=== PATIENT | female | born 1985 | race Caucasian/White ===

== ENCOUNTER 2019-07-24 18:35 | Emergency (ER) | payer SELFPAY ==
--- NOTE | 2019-07-24 18:39 | PDOC ---
Rapid Medical Evaluation Time Seen by Provider: 07/24/19 18:36 Medical Evaluation: 07/24/19 18:37 CC: 8wks with vaginal bleeding s/p heavy lifting PE: deferred Orders: labs, urine, TVUS Patient will proceed to ER for further evaluation. Discharge Disposition - Diagnosis Vaginal bleeding - Referrals - Patient Instructions - Post Discharge Activity
[2019-07-24 18:40] VITALS: TEMP 98.2; BMI 34.0
--- NOTE | 2019-07-24 20:03 | PDOC ---
History of Present Illness - General Chief Complaint: Vaginal Bleeding Stated Complaint: vaginal bleeding, 8wks Time Seen by Provider: 07/24/19 18:36 - History of Present Illness Initial Comments: Ms. Flores is a 33 y/o female A2, 8 weeks , with no significant PMH presenting today for vaginal spotting that started two hours ago. Reports that she was lifting something at home and having an argument with her significant other when she went to the bathroom and started having vaginal spotting. Reports associated lower abdominal cramping. Reports that she has been having nausea and vomiting over the past couple of days. Denies fever, chest pain, shortness of breath, back pain, dysuria, dizziness. SocHx: denies interpersonal violence or concern for interpersonal violence OB: Dr. Skinner [facility] Past History - Past Medical History Allergies/Adverse Reactions: Allergies Allergy/AdvReac Type Severity Reaction Status Date / Time No Known Allergies Allergy Verified 07/24/19 18:39 COPD: No - Psycho Social/Smoking Cessation Hx Smoking History: Never smoked Information on smoking cessation initiated: No Hx Alcohol Use: No Drug/Substance Use Hx: No Review of Systems - Review of Systems Comments:: GENERAL/CONSTITUTIONAL: No fever or chills. No weakness._ HEAD, EYES, EARS, NOSE AND THROAT: No change in vision. No change in hearing. No sore throat._ CARDIOVASCULAR: No chest pain or shortness of breath_ RESPIRATORY: Denies cough, hemoptysis_ GASTROINTESTINAL: No nausea, vomiting, diarrhea or constipation. Reports lower abdominal cramping. GENITOURINARY: No dysuria, frequency, or change in urination. Reports vaginal spotting. MUSCULOSKELETAL: No joint or muscle swelling or pain. No neck or back pain._ SKIN: No rash_ NEUROLOGIC: No headache, vertigo, loss of consciousness, or change in strength/ sensation._ ENDOCRINE: No increased thirst. No abnormal weight change_ HEMATOLOGIC/LYMPHATIC: No anemia, easy bleeding, or history of blood clots._ ALLERGIC/IMMUNOLOGIC: No hives or skin allergy._ *Physical Exam - Vital Signs Last Vital Signs Temp Pulse Resp BP Pulse Ox 98.2 F 106 H 19 144/107 H 100 07/24/19 18:38 07/24/19 18:38 07/24/19 18:38 07/24/19 18:38 07/24/19 18:38 - Physical Exam Comments: GENERAL: Awake, alert, and oriented to person/place/time, in no acute distress_ HEAD: No signs of trauma, normocephalic, atraumatic _ EYES: PERRLA, EOMI, sclera anicteric, conjunctiva clear_ ENT: Hearing grossly normal, nares patent, oropharynx clear without exudates. No uvular deviation. Moist mucosa_ NECK: Normal ROM, supple, no lymphadenopathy, JVD, or masses_ LUNGS: No distress, speaks in full sentences, clear to auscultation bilaterally _ HEART: Regular rate and rhythm, normal S1 and S2, no murmurs appreciated, peripheral pulses normal and equal bilaterally._ ABDOMEN: Soft, mild TTP BLQ, normoactive bowel sounds. No guarding, no rebound. No masses_ EXTREMITIES: Normal inspection, Normal range of motion, no edema. No clubbing or cyanosis_ NEUROLOGICAL: Cranial nerves II through XII grossly intact. Normal speech, normal gait, no focal sensorimotor deficits _ SKIN: Warm, Dry, normal turgor, no rashes or lesions noted_ PELVIC: External exam shows no lesions, ulcers, rashes. No bleeding on external exam. Os closed. No bleeding or discharge appreciated on internal inspection. No CMT. No bilateral adnexal tenderness. ED Treatment Course - LABORATORY CBC & Chemistry Diagram: 07/24/19 20:23 07/24/19 20:23 Medical Decision Making - Medical Decision Making 33F A2 at 8 weeks here for vaginal spotting. Nausea and vomiting over the past couple of days. -CBC, BMP, PT/INR -TVUS -serum beta HCG -T+S -UA,UC 07/24/19 23:10 TVUS shows single viable intrauterine . Labs reviewed and wnl except for elevated WBC. Plan to d/c home f/u OBGYN in two days. Discharge - Discharge Information Problems reviewed: Yes Clinical Impression/Diagnosis: Vaginal bleeding, Threatened Condition: Stable Disposition: HOME - Admission No - Follow up/Referral - Patient Discharge Instructions Additional Instructions: Please make a follow up appointment with your OBGYN (Dr. Skinner's office). Please rest, hydrate yourself, no heavy lifting or activity. If you experience any new, worsening, or concerning symptoms, including severe abdominal pain, cramping, vaginal bleeding or discharge, fever, or any other concerns, please return to the emergency department. - Post Discharge Activity
[2019-07-24 20:38] LABS: BASO % 0.2 % (0-2.0); EOS % 0.1 % (0-4.5); HEMATOCRIT 35.9 % (32.4-45.2); HEMOGLOBIN 11.9 GM/dL (10.7-15.3); LYMPH % 8.9 % (8-40); MCH 30.2 pg (25.7-33.7); MCHC 33.2 g/dl (32.0-36.0); MEAN CELL VOLUME 91.1 fl (80-96); MEAN PLT VOLUME 7.8 fl (7.5-11.1); MONO % 4.6 % (3.8-10.2); NEUT % 86.2 % (42.8-82.8); PLATELET COUNT 353 K/MM3 (134-434); RBC 3.94 M/mm3 (3.60-5.2); RDW 12.9 % (11.6-15.6); WHITE BLOOD COUNT 16.9 K/mm3 (4.0-10.0)
[2019-07-24 20:43] LABS: PH,URINE 5.5 (5.0-8.0); URINE APPEARANCE CLOUDY; URINE BILIRUBIN NEGATIVE (NEGATIVE); URINE COLOR YELLOW; URINE GLUCOSE (UA) NEGATIVE (NEGATIVE); URINE KETONE NEGATIVE (NEGATIVE); URINE LEUK ESTERASE NEGATIVE (NEGATIVE); URINE NITRITE NEGATIVE (NEGATIVE); URINE PROTEIN NEGATIVE (NEGATIVE)
[2019-07-24 20:49] LABS: INR 1.06 (0.83-1.09); PROTHROMBIN TIME (PATIENT) 12.5 SEC (9.7-13.0)
--- NOTE | 2019-07-24 20:54 | PDOC ---
Documentation entered by Polina Martinez SCRIBE, acting as scribe for Galina Dasilva DO. Galina Dasilva DO: This documentation has been prepared by the Juan luna Adrianna, SCRIBE, under my direction and personally reviewed by me in its entirety. I confirm that the documentation accurately reflects all work, treatment, procedures, and medical decision making performed by me. Attending Attestation - Resident Resident Name: MullerFamilia - ED Attending Attestation I have performed the following: I have examined & evaluated the patient, The case was reviewed & discussed with the resident, I agree w/resident's findings & plan, Exceptions are as noted - HPI HPI: The patient is a 33 year old female, A2 currently at ~7-8 weeks gestation, who presents to the ED for evaluation of vaginal bleeding for 2 hours. Patient complains of vaginal spotting that began a couple hours ago following an argument with her significant other. Denies any current active bleeding or use of pads. She endorses some lower abdominal cramping but otherwise denies any complaints. Patient has been taking vitamins, but does note a history of miscarriage at both 3 weeks and 5 weeks in the past. LMP was 06/06. Allergies: NKA, NKDA Surgical History: None reported Social History: Denies EtOH, tobacco, or illicit drug use SIGNAL MAINTENANCE TECHNICIAN: Dr. Skinner - Physicial Exam PE: Constitutional: Awake, alert, oriented. No acute distress. Head: Normocephalic. Atraumatic Eyes: PERRL. EOMI. Conjunctivae are not pale. ENT: Mucous membranes are moist and intact. Posterior pharynx without exudates or erythema. Uvula midline. Neck: Supple. Full ROM. No lymphadenopathy. Cardiovascular: Regular rate. Regular rhythm. S1, S2 regular. Distal pulses are 2+ and symmetric. Pulmonary/Chest: No evidence of respiratory distress. Clear to auscultation bilaterally No wheezing, rales or rhonchi. Abdominal: +Mild suprapubic tenderness to palpation. Soft and nondistended. No rebound, guarding or rigidity. No organomegaly. No palpable masses. Good bowel sounds. Pelvic: See resident exam Back: No CVA tenderness. Musculoskeletal: No edema. No cyanosis. No clubbing. Full range of motion in all extremities. Nocalf tenderness. Radial/pedal pulses are intact and 2+ bilaterally Skin: Skin is warm and dry. No petechiae. No purpura. Neurological: Alert and oriented to person, place, and time. Cranial nerves II -XII are grossly intact. Normal speech. Strength is grossly symmetric. No sensory deficits. Psychiatric: Good eye contact. Normal interaction, affect and behavior. - Medical Decision Making 07/24/19 20:28 I, Dr. Galina Dasilva, DO, attest that this document has been prepared under my direction and personally reviewed by me in its entirety. I further attest, that it accurately reflects all work, treatment, procedures and medical decision -making performed by me. a/p: 33yo female at 7-8 weeks gestation with vaginal spotting today after having a verbal argument -no active bleeding -no pads used -hx of miscarriage at 3 weeks and 5 weeks in the past -cramping in lower abd -follows with Dr. Skinner -taking vitamins -no f/c -no dysuria -no other complaints. 07/24/19 20:54 ua neg 07/24/19 21:02 elevated wbc 07/24/19 21:53 beta 62400 pt to ultrasound 07/24/19 23:16 IUP, HR 114 pt stable for dc to home with [employer] follow up and repeat beta in 2 days 07/24/19 23:17 pt is O+ on labs ED Treatment Course - LABORATORY CBC & Chemistry Diagram: 07/24/19 20:23 07/24/19 20:23 - ADDITIONAL ORDERS Additional order review: Laboratory Results 07/24/19 07/24/19 07/24/19 20:23 20:23 20:23 PT with INR 12.50 INR 1.06 Sodium Potassium Chloride Carbon Dioxide Anion Gap BUN Creatinine Est GFR (CKD-EPI)AfAm Est GFR (CKD-EPI)NonAf Random Glucose Calcium Beta HCG, Quant Urine Color Yellow Urine Appearance Cloudy Urine pH 5.5 Ur Specific [place] 1.028 Urine Protein Negative Urine Glucose (UA) Negative Urine Ketones Negative Urine Blood Negative Urine Nitrite Negative Urine Bilirubin Negative Urine Urobilinogen 1.0 Ur Leukocyte Esterase Negative Blood Type O POSITIVE Antibody Screen Negative 07/24/19 07/24/19 20:23 20:23 PT with INR INR Sodium 139 Potassium 4.0 Chloride 110 H Carbon Dioxide 23 Anion Gap 6 L BUN 7.2 Creatinine 0.6 Est GFR (CKD-EPI)AfAm 136.87 Est GFR (CKD-EPI)NonAf 118.09 Random Glucose 93 Calcium 8.7 Beta HCG, Quant 07885.1 Urine Color Urine Appearance Urine pH Ur Specific [place] Urine Protein Urine Glucose (UA) Urine Ketones Urine Blood Urine Nitrite Urine Bilirubin Urine Urobilinogen Ur Leukocyte Esterase Blood Type Antibody Screen 07/24/19 20:23 RBC 3.94 MCV 91.1 MCHC 33.2 RDW 12.9 MPV 7.8 Neutrophils % 86.2 H Lymphocytes % 8.9 Monocytes % 4.6 Eosinophils % 0.1 Basophils % 0.2 - RADIOLOGY Radiograph Interpretation: EXAM#: TYPE/EXAM: RESULT: [id number] US/ <14WKS US Obstetrical ultrasound Clinical information: 8 weeks with vaginal bleeding Impression: Single viable intrauterine gestation at approximately 6 weeks 1 day. No definite sonographic abnormality is identified. Reported By: Raji Salazar MD 07/24/19 23:04
[2019-07-24 20:59] LABS: BLOOD UREA NITROGEN 7.2 mg/dL (7-18); CALCIUM 8.7 mg/dL (8.5-10.1); CREATININE 0.6 mg/dL (0.55-1.3)
[2019-07-24 22:38] VITALS: BP 135/85; PULSE 71
== END 2019-07-24 23:40 | disposition home or self-care (01) ==
LOC: JER 18:35
DX: O26.891 Other specified pregnancy related conditions, first trimester (principal); O20.0 Threatened abortion; Z3A.01 Less than 8 weeks gestation of pregnancy
CPT/HCPCS: 36415; 76801-TC; 80048; 81003; 84702; 85025; 85610; 86850; 86900; 86901; 87086; 99283-25

== ENCOUNTER 2020-04-27 21:06 | Emergency (ER) | payer OTHER ==
[2020-04-27 21:11] VITALS: BMI 30.2
--- NOTE | 2020-04-27 21:13 | PDOC ---
Rapid Medical Evaluation Time Seen by Provider: 04/27/20 21:09 Medical Evaluation: Allergies Allergy/AdvReac Type Severity Reaction Status Date / Time No Known Allergies Allergy Verified 02/23/20 22:55 04/27/20 21:10 Pt presents for evaluation of lightheadedness and HTN. She states that she was recently diagnosed with HTN after giving two months ago, but does not take any medications for it. Also admits to neck pain, denies fever, nausea, vomiting and chest pain Exam: BP 157/97, Lungs CTAB Orders: labs, EKG, IV Pt to proceed to the ER for further evaluation Discharge Disposition - Diagnosis Lightheaded - Discharge Dispostion Disposition: HOME Condition at time of disposition: Stable Decision to Admit order: No - Referrals - Patient Instructions - Post Discharge Activity
--- NOTE | 2020-04-27 22:26 | PDOC ---
History of Present Illness - General Chief Complaint: Blood Pressure Problem Stated Complaint: HYPERTENSION Time Seen by Provider: 04/27/20 21:09 History Source: Patient - History of Present Illness Initial Comments: 04/27/20 23:26 34-year-old female reports that she is 2 months noted to have some dizziness and headache at home with some chest pressure which has resolved. Patient reports that her blood pressure is high. Patient reports that she has been referred to a PCP pending appointment for hypertension. Patient has a past medical history of hypertension, anxiety currently not on m edication for hypertension Past History - Medical History Allergies/Adverse Reactions: Allergies Allergy/AdvReac Type Severity Reaction Status Date / Time No Known Allergies Allergy Verified 02/23/20 22:55 Home Medications: Ambulatory Orders Acetaminophen [Tylenol] 1 tab PO PRN 02/23/20 Folic Acid 1 tab PO DAILY 02/23/20 Pnv No.95/Ferrous Fum/Folic AC [ Vitamin Tablet] 1 tab PO DAILY 02/23/20 Ibuprofen [Motrin -] 600 mg PO QID #28 tablet 02/24/20 Asthma: No Cancer: No Cardiac Disorders: No COPD: No Diabetes: No HTN: Yes Seizures: No Thyroid Disease: No - Reproductive History Is Patient Now?: No - Psycho-Social/Smoking History Smoking History: Current every day smoker Have you smoked in the past 12 months: No Number of Cigarettes Smoked Daily: 1 Information on smoking cessation initiated: No - Substance Abuse Hx (Audit-C & DAST Scrn) How often the patient has a drink containing alcohol: Never Score: In Men: 4 or > Positive; In Women: 3 or > Positive: 0 Screen Result (Pos requires Nsg. Audit-10AR): Negative In the last yr the pt used illegal drug/Rx for NonMed reason: No Score: Yes response is considered Positive: 0 Screen Result (Positive result requires Nsg. DAST-10): Negative *Physical Exam - Vital Signs Last Vital Signs Temp Pulse Resp BP Pulse Ox 98.6 F 77 19 157/97 99 04/27/20 21:07 04/27/20 21:07 04/27/20 21:07 04/27/20 21:07 04/27/20 21:07 - Physical Exam General Appearance: Yes: Appropriately Dressed Respiratory/Chest: positive: Lungs Clear, Normal Breath Sounds Cardiovascular: positive: Regular Rhythm, Regular Rate Gastrointestinal/Abdominal: positive: Normal Bowel Sounds, Soft. negative: Tender Musculoskeletal: positive: Normal Inspection Extremity: positive: Normal Capillary Refill, Normal Inspection, Normal Range of Motion Integumentary: positive: Normal Color, Dry, Warm Neurologic: positive: Fully Oriented, Alert, Normal Mood/Affect Heart Score/ECG Review - ECG Intrepretation Rhythm: Regular Rhythm Comment:: 04/27/20 23:27 LBBB Sinus rhythm with marked : 72 bpm ED Treatment Course - LABORATORY CBC & Chemistry Diagram: 04/27/20 22:24 04/27/20 22:24 Medical Decision Making - Medical Decision Making A: headache/ hypertension P: labs: no signs of HELLP syndrome ekg chest xray 04/27/20 23:49 EKG: LBBB is known as per patient. cardiology referral given 04/27/20 23:49 04/27/20 23:50 Discharge - Discharge Information Problems reviewed: Yes Clinical Impression/Diagnosis: Hypertension Qualifiers: Hypertension type: unspecified Qualified Code(s): I10 - Essential (primary) hypertension Condition: Stable Disposition: HOME - Follow up/Referral Referrals: Angela Chang MD [Staff Physician] - Call tomorrow Rosendo Miller MD [Staff Physician] - Call tomorrow - Patient Discharge Instructions Patient Printed Discharge Instructions: How to Monitor Your Blood Pressure at Home Additional Instructions: please follow up with your primary doctor as soon as possible. please also follow up with a sales intern as soon as possible. - Post Discharge Activity Work/Back to School Note: Back to Work
[2020-04-27 22:35] LABS: BASO % 0.6 % (0-2.0); EOS % 9.8 % (0-4.5); HEMATOCRIT 35.7 % (32.4-45.2); HEMOGLOBIN 11.7 GM/dL (10.7-15.3); LYMPH % 24.3 % (8-40); MCH 28.6 pg (25.7-33.7); MCHC 32.9 g/dl (32.0-36.0); MEAN PLT VOLUME 7.8 fl (7.5-11.1); MONO % 5.7 % (3.8-10.2); NEUT % 59.6 % (42.8-82.8); PLATELET COUNT 362 K/MM3 (134-434); WHITE BLOOD COUNT 9.8 K/mm3 (4.0-10.0)
[2020-04-27 23:10] LABS: PH,URINE 6.5 (5.0-8.0); URINE APPEARANCE CLEAR; URINE BILIRUBIN NEGATIVE (NEGATIVE); URINE COLOR YELLOW; URINE GLUCOSE (UA) NEGATIVE (NEGATIVE); URINE KETONE NEGATIVE (NEGATIVE); URINE LEUK ESTERASE NEGATIVE (NEGATIVE); URINE NITRITE NEGATIVE (NEGATIVE); URINE PROTEIN NEGATIVE (NEGATIVE); URINE UROBILINOGEN 0.2 mg/dL (0.2-1.0)
[2020-04-27 23:11] LABS: ALBUMIN 3.6 g/dl (3.4-5.0); BILIRUBIN,TOTAL 0.3 mg/dL (0.2-1); BLOOD UREA NITROGEN 11.9 mg/dL (7-18); CALCIUM 8.9 mg/dL (8.5-10.1); CREATININE 0.9 mg/dL (0.55-1.3); POTASSIUM 4.6 mmol/L (3.5-5.1); TOT PROT 7.2 g/dl (6.4-8.2)
[2020-04-27 23:13] LABS: HCG,QUALITATIVE URINE Negative
[2020-04-27] MEDS ORDERED: ACETAMINOPHEN 500 MG TABLET (FP) PO ONE (23:29)
[2020-04-27] MEDS ORDERED: ACETAMINOPHEN 500 MG TABLET (FP) ONE (23:46)
[2020-04-28 00:02] VITALS: BP 136/93; PULSE 75; TEMP 97
--- NOTE | 2020-04-28 13:38 | EKG ---
Test Reason : Blood Pressure : / mmHG Vent. Rate : 072 BPM Atrial Rate : 072 BPM P-R Int : 156 ms QRS Dur : 140 ms QT Int : 456 ms P-R-T Axes : 043 052 023 degrees QTc Int : 499 ms SINUS RHYTHM WITH MARKED SINUS ARRHYTHMIA LEFT BUNDLE BRANCH BLOCK ABNORMAL ECG NO PREVIOUS ECGS AVAILABLE Confirmed by MD Leiva Edward ([id number]) on 04/28/2020 1:38:30 PM Referred By: Confirmed By:Denny Leiva MD
== END 2020-04-28 00:03 | disposition home or self-care (01) ==
LOC: JER 21:06
DX: I10 Essential (primary) hypertension (principal)
CPT/HCPCS: 36415; 71046-TC-FY; 80053; 81003; 84443; 84703; 85025; 87086; 93005; 93010; 99285-25

== ENCOUNTER 2021-01-03 23:05 | Inpatient (IN) | payer OTHER ==
[2021-01-04] MEDS ORDERED: AMPICILLIN SODIUM 2 GM VIAL ONE (00:15)
[2021-01-04] MEDS ORDERED: AMPICILLIN - 2 GM in SODIUM CHLORIDE 100 ML IVPB ONE (00:15)
[2021-01-04] MEDS ORDERED: BENZOCAINE 20% 57 GM BOTTLE TP PRN (00:49)
[2021-01-04] MEDS ORDERED: WITCH HAZEL 50% (TUCKS) 40 PAD/JAR PAD TP PRN (00:49)
[2021-01-04] MEDS ORDERED: METHYLERGONOVINE MALEATE 0.2 MG/1 ML AMP IM PRN (00:49)
[2021-01-04] MEDS ORDERED: BISACODYL 10 MG SUPP.RECT PR PRN (00:49)
[2021-01-04] MEDS ORDERED: BENZOCAINE 28 GM HEMORRHOIDAL OINTMENT PR PRN (00:49)
[2021-01-04 00:58] LABS: BASO % 0.3 % (0-2.0); EOS % 0.9 % (0-4.5); HEMATOCRIT 31.3 % (32.4-45.2); HEMOGLOBIN 10.3 GM/dL (10.7-15.3); LYMPH % 15.6 % (8-40); MCH 28.6 pg (25.7-33.7); MEAN CELL VOLUME 86.6 fl (80-96); MEAN PLT VOLUME 8.6 fl (7.5-11.1); MONO % 7.6 % (3.8-10.2); NEUT % 75.6 % (42.8-82.8); PLATELET COUNT 263 K/MM3 (134-434); RBC 3.62 M/mm3 (3.60-5.2); WHITE BLOOD COUNT 12.5 K/mm3 (4.0-10.0)
[2021-01-04] MEDS ORDERED: OXYTOCIN 20 UNITS in 0.9% NS 20 UNIT/1,000 ML INFUS.BAG IV SCH (01:00)
[2021-01-04] MEDS ORDERED: ELECTROLYTE-148 SOLN 1,000 ML IV SCH (01:00)
[2021-01-04 01:07] LABS: PROTHROMBIN TIME (PATIENT) 12.3 SEC (9.7-13.0)
[2021-01-04 01:09] LABS: ACTIVATED PTT 25.9 SECONDS (25.2-36.5)
[2021-01-04 01:11] VITALS: BMI 34.6
[2021-01-04 01:15] LABS: CALCIUM 9.3 mg/dL (8.5-10.1)
[2021-01-04 01:16] LABS: BLOOD UREA NITROGEN 5.5 mg/dL (7-18)
[2021-01-04 01:19] LABS: CREATININE 0.6 mg/dL (0.55-1.3)
[2021-01-04 01:30] LABS: CORD BASE EXCESS -2.6 mmol/L (0-2); CORD HCO3 22.3 mmHg (20-29); CORD PCO2 39.2 mmHg (30-78); CORD pH 7.372 (7.14-7.44)
[2021-01-04 01:45] LABS: SYPHILIS W/ RPR CONF NON-REACTIVE (NONREACTIVE)
[2021-01-04] MEDS ORDERED: OXYTOCIN 20 UNITS in 0.9% NS 20 UNIT/1,000 ML INFUS.BAG IV ONE ×2 (01:59)
[2021-01-04] MEDS ORDERED: IBUPROFEN 600 MG TABLET (FP) PO ONE (01:59)
[2021-01-04] MEDS ORDERED: ACETAMINOPHEN 325 MG TABLET (FP) ONE (01:59)
[2021-01-04 02:13] LABS: HIV INTERPRETATION NEGATIVE (NEGATIVE)
[2021-01-04] MEDS: ACETAMINOPHEN 325 MG TABLET (FP) PO PRN (09:02)
[2021-01-04] MEDS: IBUPROFEN 600 MG TABLET (FP) PO PRN ×2 (09:02→17:59)
[2021-01-04 21:21] VITALS: PULSE 76
[2021-01-05] MEDS: IBUPROFEN 600 MG TABLET (FP) PO PRN (01:11)
[2021-01-05] MEDS: ACETAMINOPHEN 325 MG TABLET (FP) PO PRN (01:11)
[2021-01-05] MEDS: AMPICILLIN - 1 GM in SODIUM CHLORIDE 100 ML IVPB SCH (05:08)
[2021-01-05 08:15] LABS: BASO % 0.6 % (0-2.0); EOS % 2.9 % (0-4.5); HEMATOCRIT 27.8 % (32.4-45.2); HEMOGLOBIN 9.3 GM/dL (10.7-15.3); LYMPH % 25.2 % (8-40); MCH 29.5 pg (25.7-33.7); MCHC 33.6 g/dl (32.0-36.0); MEAN CELL VOLUME 87.8 fl (80-96); MEAN PLT VOLUME 8.6 fl (7.5-11.1); MONO % 6.7 % (3.8-10.2); NEUT % 64.6 % (42.8-82.8); PLATELET COUNT 236 K/MM3 (134-434); RBC 3.17 M/mm3 (3.60-5.2); RDW 14.2 % (11.6-15.6); WHITE BLOOD COUNT 9.3 K/mm3 (4.0-10.0)
[2021-01-05 12:40] VITALS: BP 133/72; TEMP 98.5
== END 2021-01-05 12:40 | disposition home or self-care (01) | DRG 560 ==
LOC: JDEL 23:05 → JLDR 23:57 → J3W 01-04 02:28
PROVIDERS: ADMIT Obstetrics & Gynecology; ATTEND Obstetrics & Gynecology
PROC: 10E0XZZ Delivery of Products of Conception, External Approach (ICD-10-PCS; principal; 2021-01-04)
DX: O34.219 Maternal care for unspecified type scar from previous cesarean delivery (principal); Z3A.37 37 weeks gestation of pregnancy; Z37.0 Single live birth; O99.214 Obesity complicating childbirth; E66.9 Obesity, unspecified
CPT/HCPCS: 36415; 36600; 59025; 59409; 80048; 82803; 85025; 85610; 85730; 86762; 86780; 86850; 86900; 86901; 87340; 87389; C9803; U0003; U0005

== ENCOUNTER 2021-06-07 00:49 | Emergency (ER) | payer OTHER ==
[2021-06-07 01:17] VITALS: BP 127/85; PULSE 76; TEMP 98.2; BMI 33.3
[2021-06-07 04:06] LABS: BASO % 1.1 % (0-2.0); EOS % 6.3 % (0-4.5); HEMATOCRIT 34.1 % (32.4-45.2); LYMPH % 21.9 % (8-40); MCH 29.5 pg (25.7-33.7); MCHC 35.1 g/dl (32.0-36.0); MEAN PLT VOLUME 7.9 fl (7.5-11.1); MONO % 5.8 % (3.8-10.2); NEUT % 64.9 % (42.8-82.8); PLATELET COUNT 323 10^3/uL (134-434); RBC 4.06 M/mm3 (3.60-5.2); RDW 15.9 % (11.6-15.6); WHITE BLOOD COUNT 9.2 K/mm3 (4.0-10.0)
[2021-06-07 04:19] LABS: CHLORIDE 105 mmol/L (98-107); SODIUM 132 mmol/L (136-145)
[2021-06-07 04:22] LABS: ALBUMIN 3.4 g/dl (3.4-5.0); BLOOD UREA NITROGEN 11.5 mg/dL (7-18); CO2 23 mmol/L (21-32); GLUCOSE,RANDOM 83 mg/dL (74-106)
[2021-06-07 04:25] LABS: CREATININE 0.7 mg/dL (0.55-1.3); SGOT/AST 93 U/L (15-37)
[2021-06-07 04:27] LABS: BILIRUBIN,TOTAL 0.2 mg/dL (0.2-1); TOT PROT 8.2 g/dl (6.4-8.2)
[2021-06-07 04:28] LABS: ALK PHOS 114 U/L (45-117)
[2021-06-07 04:47] LABS: ANION GAP 4 MMOL/L (8-16); SGPT/ALT 25 U/L (13-61)
== END 2021-06-07 04:59 | disposition home or self-care (01) ==
LOC: JER 00:49
DX: R51.9 Headache, unspecified (principal); R20.2 Paresthesia of skin; I44.7 Left bundle-branch block, unspecified
CPT/HCPCS: 36415; 80053; 84484; 85025; 93005; 93010; 99284-25

== ENCOUNTER 2021-09-25 19:19 | Emergency (ER) | payer OTHER ==
[2021-09-25 19:33] VITALS: BP 126/84; PULSE 85; TEMP 100; BMI 32.9
[2021-09-26 20:07] LABS: SARS-CoV-2 NAA Detected (Not Detected)
== END 2021-09-25 20:42 | disposition home or self-care (01) ==
LOC: JER 19:19
DX: U07.1 COVID-19 (principal); R05.9 Cough, unspecified; R51.9 Headache, unspecified
CPT/HCPCS: 87804; 99283-25; C9803-CS; U0003; U0005

== ENCOUNTER 2021-10-21 11:02 | Emergency (ER) | payer OTHER ==
[2021-10-21 11:10] VITALS: BMI 33.4
[2021-10-21 12:50] LABS: BASO % 0.7 % (0-2.0); EOS % 2.9 % (0-4.5); HEMATOCRIT 37.2 % (32.4-45.2); LYMPH % 17.8 % (8-40); MCH 28.2 pg (25.7-33.7); MCHC 32.4 g/dl (32.0-36.0); MEAN CELL VOLUME 87.2 fl (80-96); MEAN PLT VOLUME 8.2 fl (7.5-11.1); MONO % 5.5 % (3.8-10.2); NEUT % 73.1 % (42.8-82.8); PLATELET COUNT 320 10^3/uL (134-434); RBC 4.27 M/mm3 (3.60-5.2); RDW 14.3 % (11.6-15.6); WHITE BLOOD COUNT 7.5 K/mm3 (4.0-10.0)
[2021-10-21 13:22] LABS: ALBUMIN 3.9 g/dl (3.4-5.0); CALCIUM 9.1 mg/dL (8.5-10.1)
[2021-10-21 13:23] LABS: BLOOD UREA NITROGEN 9.9 mg/dL (7-18)
[2021-10-21 13:25] LABS: CREATININE 0.7 mg/dL (0.55-1.3)
[2021-10-21 13:27] LABS: BILIRUBIN,TOTAL 0.5 mg/dL (0.2-1); TOT PROT 7.9 g/dl (6.4-8.2)
[2021-10-21 13:31] LABS: EPI CELLS 18 /uL (0-25.1); HYALINE CASTS 1 /uL (0-3.1); URINE APPEARANCE CLEAR; URINE BACTERIA 100 /uL (0-1359); URINE BILIRUBIN NEGATIVE (NEGATIVE); URINE COLOR YELLOW; URINE GLUCOSE (UA) NEGATIVE (NEGATIVE); URINE KETONE NEGATIVE (NEGATIVE); URINE LEUK ESTERASE NEGATIVE (NEGATIVE); URINE NITRITE NEGATIVE (NEGATIVE); URINE PROTEIN NEGATIVE (NEGATIVE); URINE RBC 227 /uL (0-23.9); URINE UROBILINOGEN 0.2 mg/dL (0.2-1.0); URINE WBC 14 /uL (0-25.8)
[2021-10-21 13:42] LABS: HCG,QUALITATIVE URINE Negative
[2021-10-21 14:12] VITALS: BP 130/84; PULSE 82; TEMP 98.6
== END 2021-10-21 14:59 | disposition home or self-care (01) ==
LOC: JER 11:02
DX: R42 Dizziness and giddiness (principal); R20.2 Paresthesia of skin
CPT/HCPCS: 36415; 71046-TC-FY; 80053; 81003; 84484; 84703; 85025; 87086; 93005; 93010; 99285-25

== ENCOUNTER 2022-07-14 13:02 | Emergency (ER) | payer OTHER ==
[2022-07-14 13:24] VITALS: BP 133/87; PULSE 78; RESP 18; TEMP 98; BMI 33.7
[2022-07-14] MEDS ORDERED: SODIUM CHLORIDE 0.9% 500 ML INFUS.BAG IV ONE (14:30)
[2022-07-14] MEDS ORDERED: KETOROLAC TROMETHAMINE 30 MG/1 ML VIAL IVPUSH ONE (14:30)
[2022-07-14] MEDS ORDERED: MECLIZINE HCL 25 MG TABLET (FP) PO ONE (14:30)
[2022-07-14] MEDS ORDERED: MECLIZINE HCL 25 MG TABLET (FP) ONE (14:52)
[2022-07-14] MEDS ORDERED: KETOROLAC TROMETHAMINE 30 MG/1 ML VIAL ONE (14:52)
[2022-07-14 16:22] LABS: BASO % 0.5 % (0-2.0); EOS % 4.2 % (0-4.5); HEMATOCRIT 38.1 % (32.4-45.2); HEMOGLOBIN 12.4 GM/dL (10.7-15.3); LYMPH % 17.4 % (8-40); MCH 28.3 pg (25.7-33.7); MCHC 32.4 g/dl (32.0-36.0); MEAN CELL VOLUME 87.3 fl (80-96); MEAN PLT VOLUME 8.6 fl (7.5-11.1); MONO % 3.2 % (3.8-10.2); NEUT % 74.7 % (42.8-82.8); PLATELET COUNT 389 10^3/uL (134-434); RBC 4.37 M/mm3 (3.60-5.2); RDW 13.9 % (11.6-15.6); WHITE BLOOD COUNT 10.2 K/mm3 (4.0-10.0)
[2022-07-14 16:33] LABS: URINE APPEARANCE CLEAR; URINE BILIRUBIN NEGATIVE (NEGATIVE); URINE COLOR YELLOW; URINE GLUCOSE (UA) NEGATIVE (NEGATIVE); URINE KETONE NEGATIVE (NEGATIVE); URINE LEUK ESTERASE NEGATIVE (NEGATIVE); URINE NITRITE NEGATIVE (NEGATIVE); URINE PROTEIN NEGATIVE (NEGATIVE); URINE UROBILINOGEN 0.2 mg/dL (0.2-1.0)
[2022-07-14 16:39] LABS: CHLORIDE 105 mmol/L (98-107); SODIUM 135 mmol/L (136-145)
[2022-07-14 16:41] LABS: ALBUMIN 3.5 g/dl (3.4-5.0); CALCIUM 8.5 mg/dL (8.5-10.1); CO2 27 mmol/L (21-32)
[2022-07-14 16:42] LABS: GLUCOSE,RANDOM 78 mg/dL (74-106)
[2022-07-14 16:45] LABS: CREATININE 0.7 mg/dL (0.55-1.3); SGOT/AST 62 U/L (15-37)
[2022-07-14 16:46] LABS: BILIRUBIN,TOTAL 0.5 mg/dL (0.2-1); TOT PROT 7.7 g/dl (6.4-8.2)
[2022-07-14 16:47] LABS: ALK PHOS 126 U/L (45-117)
[2022-07-14 16:50] LABS: ANION GAP 3 MMOL/L (8-16); SGPT/ALT 25 U/L (13-61)
== END 2022-07-14 17:30 | disposition home or self-care (01) ==
LOC: JER 13:02
PROC: 3E033GC Introduction of Other Therapeutic Substance into Peripheral Vein, Percutaneous Approach (ICD-10-PCS; principal; 2022-07-14)
DX: R42 Dizziness and giddiness (principal)
CPT/HCPCS: 36415; 70450-TC; 71046-TC-FY; 80053; 81003; 84484; 84703; 85025; 93005; 93010; 99285-25